=== PATIENT | male | born 1940 | race Caucasian/White ===

== ENCOUNTER 2017-04-29 14:28 | Emergency (ER) | payer MEDICARE ==
[2017-04-29] MEDS ORDERED: METHYLPREDNISOLONE SOD SUCC/PF 125 MG/2 ML VIAL IV ONE (14:34)
[2017-04-29] MEDS ORDERED: ALBUTEROL SULFATE/IPRATROPIUM 3 ML NEBU IH ONE ×2 (14:34→14:37)
[2017-04-29] MEDS ORDERED: METHYLPREDNISOLONE SOD SUCC/PF 40 MG/ML VIAL ONE (14:40)
[2017-04-29 14:54] LABS: Hematocrit 45.8 % (42.0-52.0); Hemoglobin 14.6 gm/dL (13.5-18.0); Mean Cell Volume 100.7 fl (78-100); Mean Corpuscular Hemoglobin 32.1 pg (27-31); Mean Corpuscular Hgb Conc 31.9 g/dl (32-36); Mean Platelet Volume 10.1 fl (6.0-9.5); Neutrophil # 6.1 K/mm3 (1.3-6.0); Neutrophil % 75.6 % (42-75.0); Platelet Count 213 K/mm3 (150-450); Red Blood Count 4.55 M/mm3 (4.7-6.0); Red Cell Distribution Width 12.6 % (11.5-14.0)
[2017-04-29 15:10] LABS: Albumin * 3.6 gm/dl (3.4-5.0); Anion Gap 8.7 mmol/L (6.8-13.8); BUN/Creatinine Ratio 19.4 (9.0-21.6); Bilirubin, Total 1.1 mg/dL (0.0-1.1); Ca. Corrected For Albumin 9.4 mg/dL (8.4-10.2); Calcium * 9.4 mg/dL (7.9-10.9); Carbon Dioxide 37.5 mmol/L (24-32.6); Potassium 4.2 mmol/L (3.4-4.6); Total Protein 6.9 gm/dL (6.2-8.2)
[2017-04-29 15:11] LABS: Troponin I 0.019 ng/ml (0.00-0.10)
--- NOTE | 2017-04-29 15:29 | ERNOTE ---
Dyspnea - Date Date of Service: 04/29/17 - General Presenting Symptoms: shortness of breath Time Seen by Provider: 04/29/17 14:28 Source: patient Exam Limitations: no limitations - Immun/Allergies/Home Medications Immunizations: IMMUNIZATION HX Immunizations Up to Date Yes History of Influenza Vaccine Yes Hx Pneumococcal Vaccination Yes Allergies/Adverse Reactions: Allergies No Known Allergies Allergy (Verified 04/29/17 14:39) Home Medications: HOME MEDICATIONS Albuterol Sulfate [Proair Hfa] 1 - 2 puff IH Q4H PRN 04/27/15 [Last Taken Unknown] Acetaminophen [Tylenol] 650 mg PO QID PRN #0 tablet 04/30/15 [Last Taken Unknown ] Albuterol Sulfate [Albuterol Sulfate 2.5 MG/0.5ML] 2.5 mg IH Q1H PRN #0 vial.neb 04/30/15 [Last Taken Unknown] Apixaban [Eliquis] 5 mg PO BID 07/04/15 [Last Taken Unknown] Metoprolol Succinate [Toprol Xl] 100 mg PO TID 07/04/15 [Last Taken Unknown] Atorvastatin Calcium [Lipitor] 10 mg PO DAILY 04/29/17 [Last Taken Unknown] Azithromycin [Zithromax] 500 mg PO NOW #6 tab 04/29/17 [Last Taken Unknown] Budesonide [Pulmicort Flexhaler] 180 mcg IH DAILY 04/29/17 [Last Taken Unknown] Insulin Glargine,Hum.rec.anlog [Toujeo Solostar] 16 unit SQ HS 04/29/17 [Last Taken Unknown] Lisinopril 5 mg PO DAILY 04/29/17 [Last Taken Unknown] Umeclidinium Brm/Vilanterol Tr [Anoro Ellipta 62.5-25 Mcg INH] 1 each IH DAILY 04/29/17 [Last Taken Unknown] predniSONE [Prednisone] 50 mg PO DAILY #5 tablet 04/29/17 [Last Taken Unknown] - History of Present Illness Narrative: Patient presents to the ED for trouble breathing. He relates he feels like he is getting pneumonia again. He is on home oxygen for his COPD and has had pneumonia twice in the last several months. He relates he has been having increased cough, some sputum production. No hemoptysis. he has gradually been getting more SOB for the last several days. This has been gradually worsening, no acute onset SOB. No new leg pain/calf pain, or leg swelling. No CP. He denies fever. SOB worse with exertion. 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 Denies: fever/chills, chest pain/ discomfort, leg/calf pain Prior Treatment: Denies: recently seen Review of Systems - Review of Systems Constitutional: Absent: fever Respiratory: Present: shortness of breath, cough Cardiology: Absent: chest pain Gastrointestinal/Abdominal: Absent: abdominal pain Skin: Absent: rash Neurological: Absent: weakness - Patient's Past Medical History Patient History - Medical: Diabetes Type 2 Patient History - Cardiac/Respiratory: COPD Patient History - Cancer: No Hx of Cancer Patient History - Surgical Procedures: Other Patient History - Other: None - Family History Mother Family History - Medical: , Diabetes Type 2 Family History - Cardiac/Respiratory: No pertinent hx Father Family History - Medical: Family History - Cardiac/Respiratory: COPD - Social History Living Situations: home Abuse History: No History of abuse Psych History: No pertinent hx Smoking Status: Former smoker Alcohol Use: none Drug Use: none - Immunizations Immunizations Up to Date: Yes Hx Pneumococcal Vaccination: Yes History of Influenza Vaccine: Yes Physical Exam - Physical Exam General Appearance: Present: alert, no apparent distress, other - on his home O2. No distress. Speaking in full sentences. Head Exam: Present: normal inspection, no evidence of injury Eye Exam: Normal inspection: bilateral, PERRL: bilateral Ears, Nose, Throat: Present: normal ENT inspection Neck: Present: normal inspection, nontender Respiratory: Present: no respiratory distress, no accessory muscle use, other - persistent wheezes left base even after treatment. No distress.. Absent: accessory muscle use Cardiovascular/Chest: Present: normal peripheral pulses, irregularly irregular. Absent: tachycardia Gastrointestinal/Abdominal: Present: normal bowel sounds, nontender, nondistended, soft Back Exam: Present: normal range of motion Extremity Exam: Present: other - no calf tenderness Neurological Exam: Present: alert, normal mood/affect, no motor/sensory deficits Skin Exam: Present: normal color, warm/dry ED Progress - Results and Orders Patient's Lab Results:: I have reviewed the patient's lab results. - Vital Signs Patient's Vital Signs:: I have reviewed the patient's vital signs. Vital Signs: Vital Signs 04/29/17 04/29/17 04/29/17 14:31 14:38 14:44 Temperature 36.9 C Pulse Rate 77 77 113 H Respiratory 15 18 17 Rate Blood Pressure 125/75 125/75 O2 Sat by Pulse 90 90 92 Oximetry 04/29/17 15:11 Temperature Pulse Rate 114 H Respiratory 24 H Rate Blood Pressure 115/63 O2 Sat by Pulse 95 Oximetry - EKG EKG read: Interp. by me EKG Comments: A fib rate 79. PVC. Non-specific ST/T wave changes, no STEMI. - X-Ray X-Ray #1 X-Ray: chest Interpretation: Interp. by me X-ray Comments: NAPP. No PTX. - Progress/Reassessment Chief Complaint: Dyspnea Progress Note-Subjective: 04/29/17 15:48 He was feeling much improved. Given his home O2 and fragile lungs I offered him admission to the hospital but he declines this. He was feeling much improved and wishing to go home. He understands risks and benefits. Nothing at this time to suggest PE, aortic dissection, impending respiratory failure, ACS or other immediate life threat. I discussed warning signs and reasons to return as well as the need for close f/u. Departure Clinical Impression: COPD exacerbation - Departure Disposition: Home self-care Condition: Stable Instructions: Chronic Obstructive Pulmonary Disease Exacerbation, [id number] Additional Instructions: Rest. Fluids. Follow-up with your primary doctor in 1-2 days for a re-check. Return if you change your mind about being observed in the hospital,develop increased trouble breathing or if your condition worsens or changes in any way. Continue nebulizers. Referrals: Mariusz Crump MD [Primary Care Provider] - Prescriptions: Azithromycin [Zithromax] 500 mg PO NOW #6 tab predniSONE [Prednisone] 50 mg PO DAILY #5 tablet
[2017-04-29 15:49] VITALS: BP 118/73
== END 2017-04-29 15:56 | disposition home or self-care (01) ==
LOC: ER 14:28
DX: J44.1 Chronic obstructive pulmonary disease with (acute) exacerbation (principal); E11.9 Type 2 diabetes mellitus without complications; J44.9 Chronic obstructive pulmonary disease, unspecified